=== PATIENT | female | born 2000 | race Asian ===

== ENCOUNTER 2023-07-11 19:33 | Emergency (ER) | payer OTHER ==
[~2023-07-11] VITALS: Ht 162.6 cm; Wt 68.2 kg
[2023-07-11] MEDS ORDERED: METH4TAB3 PO (23:07)
[2023-07-11] MEDS ORDERED: DIPH25CA85 PO (23:07)
[2023-07-11] MEDS ORDERED: CETI-450 PO (23:07)
[2023-07-11] MEDS ORDERED: DiphenhydrAMINE HCL 25 MG CAPSULE PO ONE (23:15)
[2023-07-11] MEDS ORDERED: CETIRIZINE HCL 10 MG TABLET PO ONE (23:15)
[2023-07-11] MEDS ORDERED: DEXAMETHASONE SOD PHOS 4 MG/ML 5 ML VIAL IM ONE (23:15)
[2023-07-11 23:30] VITALS: BP 123/69; PULSE 91; RESP 16; TEMP 98.3
== END 2023-07-12 00:07 | disposition home or self-care (01) ==
LOC: EMS 19:35
DX: L50.9 Urticaria, unspecified (principal)
CPT/HCPCS: 99283; 96372; J1100